=== PATIENT | female | born 1995 | race Caucasian/White ===

== ENCOUNTER 2017-03-15 09:11 | Observation (INO) | payer BC ==
[~2017-03-15] VITALS: Ht 167.6 cm; Wt 82.6 kg
[2017-03-15] VITALS (7 sets, daily range): BP systolic 100–120; BP diastolic 62–78; PULSE 80–103; TEMP 36.5–37; O2SAT 96–100; Ht 167.6 cm; Wt 82.6 kg
[2017-03-15] MEDS ORDERED: SODIUM CHLORIDE 0.9% 1000ML 1,000 ML IV STA (09:36)
--- NOTE | 2017-03-15 09:39 | EMERGENCY ROOM VISIT NOTE ---
History Report prepared by Lawandaibluisa: [place] Her Under the Supervision of: Luigi SalazarO. First contact with patient: 09:26 Chief Complaint: ABDOMINAL PAIN Stated Complaint: STOMACH PAINS, WEAKNESS, NAUSEA Nursing Triage Summary: low abd pain, started yesteday, along with nausea History of Present Illness The patient is a 21 year old female who presents to the Emergency Room with complaints of abdominal pain since yesterday. The pain was constant yesterday and located in the center of her abdomen. Today the pain has been intermittent and has localized more to the right lower abdomen. The pain is worse when she is walking and was also worse in the car ride en route to the ED. There is no pain radiating to her back. The patient is also feeling nauseous but has not vomited. She denies fevers, chills, cough or cold symptoms, diarrhea, or other changes in her bowel movements. She denies eating any unusual foods or having any sick contacts. She denies any history of endometriosis or ovarian cysts. She is on control but denies other daily medication use. She has not had any past surgeries. She denies alcohol or tobacco use. Source of History: patient Onset: yesterday Position: abdomen (RLQ) Timing: intermittent Modifying Factors (Worsening): movement Associated Symptoms: + nausea, No back pain, No chills, No cough, No diarrhea, No fevers, No urinary symptoms, No vomiting Review of Systems See HPI for pertinent positives & negatives. A total of 10 systems reviewed and were otherwise negative. Past Medical & Surgical Medical Problems: (1) No known health problems Social History Problems: (1) Uses control Family History No pertinent family history Social History Smoking Status: Never Smoker Alcohol Use: none Current/Historical Medications Scheduled Control Pills ( Control Pills), 1 TAB PO DAILY Allergies Coded Allergies: No Known Allergies (Unverified , 03/15/17) Physical Exam Vital Signs Date Time Temp Pulse Resp B/P Pulse Ox O2 Delivery O2 Flow Rate FiO2 03/15/17 12:22 103 16 122/77 99 Room Air 03/15/17 10:53 76 16 115/75 97 Room Air 03/15/17 09:22 37.1 97 16 117/76 99 Room Air Physical Exam GENERAL: alert, well appearing, well nourished, no distress, non-toxic EYE EXAM: normal conjunctiva, PERRL and EOM's grossly intact OROPHARYNX: no exudate, no erythema, lips, buccal mucosa, and tongue normal and mucous membranes are moist NECK: supple, no nuchal rigidity, no adenopathy, non-tender LUNGS: Clear to auscultation. Normal chest wall mechanics HEART: no murmurs, S1 normal and S2 normal ABDOMEN: Right lower quadrant tenderness to palpation, no rebound or guarding. BACK: Back is symmetrical on inspection and there is no deformity, no midline tenderness, no CVA tenderness. SKIN: no rashes and no bruising UPPER EXTREMITIES: upper extremities are grossly normal. LOWER EXTREMITIES: No pitting edema. NEURO EXAM: Normal sensorium, cranial nerves II-XII grossly intact, normal speech, no gross weakness of arms, no gross weakness of legs. Gross sensation intact. Medical Decision & Procedures ER Provider Diagnostic Interpretation: CT:Per my review, radiologist interpretation. CT SCAN OF THE ABDOMEN AND PELVIS WITH IV CONTRAST CLINICAL HISTORY: Right lower quadrant abdominal pain. Nausea and vomiting. COMPARISON STUDY: No priors. TECHNIQUE: Following the IV administration of 94 cc of Optiray 320, CT scan of the abdomen and pelvis is performed from the lung bases to the proximal femora. Images are reviewed in the axial, sagittal, and coronal planes. IV contrast was administered without complication. Automated dose control exposure was utilized. CT DOSE: 600.03 mGy.cm FINDINGS: Lung bases: The heart is normal in size and without pericardial effusion. The lung bases are clear. Liver: The contrast-enhanced liver is normal in size, contour, and attenuation. There is no intrahepatic biliary ductal dilatation. The hepatic veins and portal veins are patent. Gallbladder: Unremarkable. Spleen: Normal in size and attenuation. Pancreas: Unremarkable. Adrenal glands: Unremarkable. Kidneys: The contrast enhanced kidneys are normal in size and without hydronephrosis. The kidneys enhance symmetrically. Abdominal vasculature: The abdominal aorta is normal in course and caliber. Bowel: The small bowel and colon are normal in course and caliber. The appendix is distended and fluid-filled measuring up to 1.6 cm in diameter as seen on axial image #355. The appendiceal wall is markedly thickened and there is significant surrounding periappendiceal inflammation. The appearance is consistent with acute appendicitis. A calcified appendicolith is seen on image #356. There is trace surrounding fluid and phlegmonous change. No organized fluid collection is seen to indicate abscess. Cecal wall thickening is likely related to adjacent appendicitis. Peritoneum: There is no intraperitoneal free air or abdominal ascites. There is a fat-containing umbilical hernia. Lymphadenopathy: Mildly enlarged mesenteric lymph nodes in the right lower quadrant are likely on a reactive basis. Pelvic viscera: The bladder and uterus are normal as visualized. Ovoid cystic foci in the right peroneal region seen on image #427 and #446 measure up to 1.5 cm. These likely represent small Andrew's duct cysts. There are bilateral ovarian follicles. Trace free fluid is seen in the cul-de-sac. Skeletal structures: No lytic or blastic lesions are seen. IMPRESSION: 1. Findings are consistent with severe acute appendicitis. There is no definite evidence of abscess or intraperitoneal free air. Surgical consultation is advised. 2. Suspect right-sided Andrew's duct cysts. 3. There is trace nonspecific free fluid in cul-de-sac. 4. Additional findings as above. Electronically signed by: Apolinar Peña M.D. 03/15/2017 12:35 PM Dictated Date/Time: 03/15/2017 12:27 PM Laboratory Results 03/15/17 09:55 Red Blood Count 4.57, Mean Corpuscular Volume 82.9, Mean Corpuscular Hemoglobin 26.9, Mean Corpuscular Hemoglobin Concent 32.5, Mean Platelet Volume 11.0, Neutrophils (%) (Auto) 84.3, Lymphocytes (%) (Auto) 9.6, Monocytes (%) (Auto) 5.6, Eosinophils (%) (Auto) 0.1, Basophils (%) (Auto) 0.2, Neutrophils # (Auto) 13.65, Lymphocytes # (Auto) 1.55, Monocytes # (Auto) 0.91, Eosinophils # (Auto) 0.02, Basophils # (Auto) 0.03 03/15/17 09:55 Test 03/15/17 09:55 White Blood Count 16.19 K/uL (4.8-10.8) Red Blood Count 4.57 M/uL (4.2-5.4) Hemoglobin 12.3 g/dL (12.0-16.0) Hematocrit 37.9 % (37-47) Mean Corpuscular Volume 82.9 fL (80-100) Mean Corpuscular Hemoglobin 26.9 pg (25-34) Mean Corpuscular Hemoglobin Concent 32.5 g/dl (32-36) Platelet Count 301 K/uL (130-400) Mean Platelet Volume 11.0 fL (7.4-10.4) Neutrophils (%) (Auto) 84.3 % Lymphocytes (%) (Auto) 9.6 % Monocytes (%) (Auto) 5.6 % Eosinophils (%) (Auto) 0.1 % Basophils (%) (Auto) 0.2 % Neutrophils # (Auto) 13.65 K/uL (1.4-6.5) Lymphocytes # (Auto) 1.55 K/uL (1.2-3.4) Monocytes # (Auto) 0.91 K/uL (0.11-0.59) Eosinophils # (Auto) 0.02 K/uL (0-0.5) Basophils # (Auto) 0.03 K/uL (0-0.2) RDW Standard Deviation 38.7 fL (36.4-46.3) RDW Coefficient of Variation 12.8 % (11.5-14.5) Immature Granulocyte % (Auto) 0.2 % Immature Granulocyte # (Auto) 0.03 K/uL (0.00-0.02) Anion Gap 6.0 mmol/L (3-11) Est Creatinine Clear Calc Drug Dose 123.1 ml/min Estimated GFR () 126.1 Estimated GFR (Non- 108.8 BUN/Creatinine Ratio 14.2 (10-20) Calcium Level 8.8 mg/dl (8.5-10.1) Total Bilirubin 0.4 mg/dl (0.2-1) Aspartate Amino Transf (AST/SGOT) 12 U/L (15-37) Alanine Aminotransferase (ALT/SGPT) 18 U/L (12-78) Alkaline Phosphatase 71 U/L (45-117) Total Protein 7.9 gm/dl (6.4-8.2) Albumin 3.4 gm/dl (3.4-5.0) Globulin 4.5 gm/dl (2.5-4.0) Albumin/Globulin Ratio 0.8 (0.9-2) Laboratory results per my review. Urine dip and urine negative. Medications Administered Medications (Trade) Dose Ordered Sig/Bert Route Start Time Stop Time Status Last Admin Dose Admin Sodium Chloride (Nss 1000ml) 1,000 ml @ 125 mls/hr Q8H STAT IV 03/15/17 09:36 03/15/17 17:35 03/15/17 10:02 125 MLS/HR ED Course 0928: The patient was evaluated in room B12b. A complete history and physical exam was performed. 0936: NSS 1000 ml @ 125 mls/hr. 0938: Urine dip and urine negative. 1039: The patient's pain is a little worse than it was before. No other changes at this time. 1248: Updated the patient. 1307: Discussed the case with Dr. Hussein, General Surgeon. The patient will be evaluated. Medical Decision Differential diagnoses includes but is not limited to gastritis, peptic ulcer disease, GERD, gallbladder disease, pancreatitis, small bowel obstruction, acute coronary syndrome, pericarditis, ischemic bowel, irritable bowel disease, irritable bowel syndrome, appendicitis, diverticulitis, malignancy, hernia, urinary tract infection, torsion, [/ectopic (if female)], perforation, trauma, infectious. Consults Time Called: 1300 Consulting Physician: Dr. Hussein, General Surgeon Returned Call: 1307 The patient will be evaluated. Impression Primary Impression: Appendicitis Scribe Attestation The scribe's documentation has been prepared under my direction and personally reviewed by me in its entirety. I confirm that the note above accurately reflects all work, treatment, procedures, and medical decision making performed by me. Departure Information Dispostion Being Evaluated By Surgeon Referrals No Doctor, Assigned (PCP) Patient Instructions My [facility] Problem Qualifiers Primary Impression: Appendicitis Appendicitis type: acute appendicitis
[2017-03-15] MEDS ORDERED: OPTIRAY 320 IV PRN (10:00)
[2017-03-15] MEDS ORDERED: BCPILLS PO (10:07)
[2017-03-15 10:14] LABS: BASO % 0.2 %; BASO ABS # 0.03 K/uL (0-0.2); COMPLETE YES; EOS % 0.1 %; HEMATOCRIT 37.9 % (37-47); IG% 0.2 %; LYMPH % 9.6 %; LYMPH ABS # 1.55 K/uL (1.2-3.4); MEAN CELL VOLUME 82.9 fL (80-100); MEAN CORPUSCULAR HEMOGLOBIN 26.9 pg (25-34); MEAN CORPUSCULAR HGB CONC 32.5 g/dl (32-36); MONO % 5.6 %; NEUT % 84.3 %; PLATELET COUNT 301 K/uL (130-400); RED BLOOD COUNT 4.57 M/uL (4.2-5.4); WHITE BLOOD COUNT 16.19 K/uL (4.8-10.8)
[2017-03-15 10:34] LABS: BUN/CREATININE RATIO 14.2 (10-20); CALCIUM 8.8 mg/dl (8.5-10.1); CREATININE 0.77 mg/dl (0.60-1.20); POTASSIUM 3.7 mmol/L (3.5-5.1)
[2017-03-15 10:37] LABS: ALB/GLOB RATIO 0.8 (0.9-2)
--- NOTE | 2017-03-15 12:37 | DIAGNOSTIC IMAGING REPORT ---
CT SCAN OF THE ABDOMEN AND PELVIS WITH IV CONTRAST CLINICAL HISTORY: Right lower quadrant abdominal pain. Nausea and vomiting. COMPARISON STUDY: No priors. TECHNIQUE: Following the IV administration of 94 cc of Optiray 320, CT scan of the abdomen and pelvis is performed from the lung bases to the proximal femora. Images are reviewed in the axial, sagittal, and coronal planes. IV contrast was administered without complication. Automated dose control exposure was utilized. CT DOSE: 600.03 mGy.cm FINDINGS: Lung bases: The heart is normal in size and without pericardial effusion. The lung bases are clear. Liver: The contrast-enhanced liver is normal in size, contour, and attenuation. There is no intrahepatic biliary ductal dilatation. The hepatic veins and portal veins are patent. Gallbladder: Unremarkable. Spleen: Normal in size and attenuation. Pancreas: Unremarkable. Adrenal glands: Unremarkable. Kidneys: The contrast enhanced kidneys are normal in size and without hydronephrosis. The kidneys enhance symmetrically. Abdominal vasculature: The abdominal aorta is normal in course and caliber. Bowel: The small bowel and colon are normal in course and caliber. The appendix is distended and fluid-filled measuring up to 1.6 cm in diameter as seen on axial image #355. The appendiceal wall is markedly thickened and there is significant surrounding periappendiceal inflammation. The appearance is consistent with acute appendicitis. A calcified appendicolith is seen on image #356. There is trace surrounding fluid and phlegmonous change. No organized fluid collection is seen to indicate abscess. Cecal wall thickening is likely related to adjacent appendicitis. Peritoneum: There is no intraperitoneal free air or abdominal ascites. There is a fat-containing umbilical hernia. Lymphadenopathy: Mildly enlarged mesenteric lymph nodes in the right lower quadrant are likely on a reactive basis. Pelvic viscera: The bladder and uterus are normal as visualized. Ovoid cystic foci in the right peroneal region seen on image #427 and #446 measure up to 1.5 cm. These likely represent small Andrew's duct cysts. There are bilateral ovarian follicles. Trace free fluid is seen in the cul-de-sac. Skeletal structures: No lytic or blastic lesions are seen. IMPRESSION: 1. Findings are consistent with severe acute appendicitis. There is no definite evidence of abscess or intraperitoneal free air. Surgical consultation is advised. 2. Suspect right-sided Andrew's duct cysts. 3. There is trace nonspecific free fluid in cul-de-sac. 4. Additional findings as above. Electronically signed by: Apolinar Peña M.D. 03/15/2017 12:35 PM Dictated Date/Time: 03/15/2017 12:27 PM
[2017-03-15] MEDS ORDERED: CEFAZOLIN SOD 1 GM VIAL ONE (13:55)
[2017-03-15] MEDS ORDERED: HEPARIN SOD (PORCINE) 1000 UNIT/ML 10 ML VIAL ONE (13:55)
[2017-03-15] MEDS ORDERED: BUPIVACAINE 0.5 % 5 MG/1 ML MPF 30ML VIAL ONE (13:55)
[2017-03-15] MEDS ORDERED: CEFOXITIN SOD 2 GM VIAL IV STA (14:06)
--- NOTE | 2017-03-15 14:06 | History and Physical: Surg Cnt ---
History & Physical Date March 15, 2017. (Citlali Collins, CAMPOS) Chief Complaint abdominal pain, acute appendicitis (Citlali Collins PA-C) History of Present Illness Isabella is a pleasant 21 year-old female who presented to emergency department from urgent care clinic with complaint of abdominal pain since yesterday at 1 pm. Isabella states the pain started at the belly button and is now in the right lower quadrant. States she has never had this pain before. Had associated nausea but no vomiting. Was in her normal state of health yesterday prior to 1 pm. Denies of any chills, sweats, chest pain, shortness of breath, changes in bowel habits, diarrhea, constipation, or blood in stools. She had a CT can of the abdomen and pelvis which showed a dilated appendix measuring 1.6 cm , consistent with severe acute appendicitis, no evidence of abscess or perforation. And a fecolith present. She has a white count of 16 and had a fever of 99.8 at the urgent care center. No fevers at home prior. (Citlali Collins PA-C) Past Medical/Surgical History Medical Problems: (1) No known health problems Social History Problems: (1) Uses control (Citlali Collins PA-C) Additional History Hepatic Disease: No Endocrine Disorder: No Kidney Disease: No Hypertension: No Heart Disease: No Bleeding Tendencies: No Infectious Diseases: No (Citlali Collins PA-C) Allergies Coded Allergies: No Known Allergies (Unverified , 03/15/17) Home Medications Scheduled Control Pills ( Control Pills), 1 TAB PO DAILY Physical Examination Skin: warm/dry, no rash Eyes: sclerae normal ENT: normal ENT inspection Head: normocephalic Neck: supple, trachea midline Respiratory/Chest: lungs clear, normal breath sounds, no respiratory distress Cardiovascular: regular rate, rhythm, no murmur Abdomen / GI: normal bowel sounds, + pertinent finding (RLQ tenderness on examination, negative McBurney's and no guarding or rigidity or peritonitis) Back: normal inspection Extremities: normal inspection Neurologic/Psych: alert, oriented x 3 (Citlali Collins PA-C) Diagnosis Acute Appendicitis - dilated appendix measuring 1.6 cm, no abscess or perforation - leukocytosis of 16 - febrile early today with temp of 99.8 - Periumbilical pain that radiated to RLQ (Citlali Collins ., PA-C) Plan of Treatment Plan to take patient back to operating room for laparoscopic appendectomy possible open Patient was informed of procedure and risks including but not limited to bleeding, infection, injury to surrounding organs /tissues, cardiopulmonary complications, blood clots, and staple leak Patient understood and informed consent obtained She will get 2 gms Cefoxitin IV pre-op She will be transferred to [facility] post operatively Dr. Hussein has seen and examined patient and agrees with above findings. (Citlali Collins ., PA-C) I interviewed and examined this patient and reviewed the labs and radiology images and reports and I agree with the above report. Her history, physical, labs and radiology findings are all consistent with appendicitis. I have recommended a laparoscopic appendectomy and explained the possible need to convert to an open procedure and explained some of the possible complications. She has signed a consent form. (Gurdeep Hussein M.D.)
[2017-03-15] MEDS ORDERED: CEFOXITIN IV 2,000 MG in DEXTROSE 5% 50ML 50 ML IV SCH (14:08)
[2017-03-15] MEDS ORDERED: FENTANYL CITRATE INJ 50 MCG/1 ML 2 ML VIAL IV PRN (14:15)
[2017-03-15] MEDS ORDERED: ONDANSETRON INJ 2 MG/ML 2 ML VIAL IV PRN ×2 (14:15→16:45)
[2017-03-15] MEDS ORDERED: EpHEDrine SULFATE INJ 50 MG/ML AMP IV PRN (14:15)
[2017-03-15] MEDS ORDERED: ATROPINE SULFATE 0.1 MG/ML 5ML SYR IV PRN (14:15)
[2017-03-15] MEDS ORDERED: HEPARIN 1000 UNIT/ML FLUSH ONE (15:50)
--- NOTE | 2017-03-15 16:31 | [facility] Post Operative Brief Note ---
Immediate Operative Summary Operative Date March 15, 2017. Pre-Operative Diagnosis Acute appendicitis Post-Operative Diagnosis Same as preoperative diagnosis Procedure(s) Performed Laparoscopic Appendectomy with conversion to open appendectomy Surgeon Dr. Gurdeep Hussein Mandrel Puller Surgeon(s) Citlali Collins PA-C Estimated Blood Loss 15 mL Findings See dictation Specimens Permanent specimens A: Appendix Drains None Anesthesia General Complication(s) None Disposition Recovery Room / PACU
[2017-03-15] MEDS ORDERED: MoRPHine SULFATE 4 MG/ML 1 ML CARP\\VIAL IV PRN (16:45)
[2017-03-15] MEDS ORDERED: IV FLUIDS COMPLETED PRN (17:00)
--- NOTE | 2017-03-15 17:29 | Anesthesiology Progress Note ---
Anesthesia Post Op Note Date & Time March 15, 2017 at 17:29 Vital Signs Pain Intensity: 0 Vital Signs Past 12 Hours Date Time Temp Pulse Resp B/P Pulse Ox O2 Delivery O2 Flow Rate FiO2 03/15/17 17:15 77 14 115/67 99 Nasal Cannula 3 03/15/17 17:05 36.6 83 14 111/66 99 Nasal Cannula 3 03/15/17 16:55 76 12 112/66 99 Nasal Cannula 3 03/15/17 16:45 76 12 112/63 99 Mask 5 03/15/17 16:37 36.7 78 12 103/61 100 Mask 10 03/15/17 13:56 103 16 122/77 99 03/15/17 12:22 103 16 122/77 99 Room Air 03/15/17 10:53 76 16 115/75 97 Room Air 03/15/17 09:22 37.1 97 16 117/76 99 Room Air Notes Mental Status: alert / awake / arousable, participated in evaluation Pt Amnestic to Procedure: Yes Nausea / Vomiting: adequately controlled Pain: adequately controlled Airway Patency, RR, SpO2: stable & adequate BP & HR: stable & adequate Hydration State: stable & adequate Anesthetic Complications: no major complications apparent Pt doing well.
[2017-03-15] MEDS: D5W AND 1/2NSS + 20MEQ KCL 1,000 ML IV SCH (18:47)
[2017-03-15] MEDS: CEFOXITIN IV 2,000 MG in DEXTROSE 5% 50ML 50 ML IV SCH (20:43)
[2017-03-15] MEDS: OXYCODONE/ACETAMINOPHEN 5-325 TAB PO PRN (22:14)
--- NOTE | 2017-03-16 00:42 | OPERATIVE REPORT ---
DATE OF OPERATION: 03/15/2017 PREOPERATIVE DIAGNOSIS: Appendicitis. POSTOPERATIVE DIAGNOSIS: Same. PROCEDURE: Laparoscopic appendectomy converted to open procedure. SURGEON: Dr. Hussein. WINCH TRUCK OPERATOR: Citlali Collins PA-C. FINDINGS: The appendix was dilated to approximately 1.6 cm. The entire appendix from its junction with the cecum to the tip was dilated. There was hyperemia and it was firm. There was no evidence of perforation or abscess. Identifying the anatomy made it difficult requiring the open procedure. TECHNIQUE: The patient was given a general anesthetic and the area was prepped and draped in the usual sterile fashion. Transverse incision was made below the umbilicus, carried down through the subcutaneous tissue to the fascia which was grasped with 2 Abelardo clamps and incised between. The peritoneum was identified, incised, and the introducer was placed bluntly. The abdomen was then insufflated to a pressure of 15 mmHg with carbon dioxide. A lower midline introducer was placed under direct vision through small skin incisions. The cecum was identified, was rotated medially, and the appendix was easily identified. The left lower quadrant introducer was then placed under direct vision. There was adhesion of the mesentery of the appendix and the appendix itself to the lateral and posterior abdominal mariscal. Those adhesions were taken down using blunt and sharp dissection. That allowed me to work superiorly, mobilizing the cecum medially off the wall by dividing the line of Toldt, this allowed better visualization. There was significant thickening of the mesentery of the appendix. Some of it could be peeled away using cautery. I was able to establish a plane in the mid portion of the mesentery and I was able to divide that using the Endo-SOILA. That allowed me further elevation of the appendix. Additional portion was then able to be freed with what proved to be the wall of the significantly dilated appendix at the base. I was able to divide the mesoappendix using the Endo-SOILA there. It was difficult to tell that the appendix was in fact dilated all the way to the base, at one point there appeared to be a more thin structure medially that appeared to possibly be the very base of the appendix which was normal. In trying to dissect that, I could not establish a very good plane, and in not being able to identify the anatomy, I decided to open. The gas was allowed to escape. A Wil-Paulo incision was performed and carried down through the subcutaneous tissue to the fascia which was opened transversely. The internal oblique fascia was opened. The muscle was split. The peritoneum was identified, incised, and the abdomen was entered. I was then able to eviscerate the appendix and the cecum which had been mobilized. It was then clear that the entire base of the appendix was dilated as well. It appeared as though I had denuded some of the serosa off the cecum. At no time, however, was the lumen of the bowel entered. At that point, I then amputated the appendix using the Endo-SOILA stapler. It required 2 firings. I then reapproximated the serosa along the entire area that I had opened it, imbricating the submucosa and mucosa until it was completely covered. It was inspected for bleeding, none was seen. The ileocecal valve was patent. I then was able to place the cecum back into its anatomic position. The right lower quadrant was irrigated and the irrigation was removed from the right lower quadrant and the pelvis. The peritoneum was closed using a running 2-0 Vicryl. The internal oblique fascia was closed with a running 0 Vicryl and the external oblique fascia was closed with a running #1 PDS. The subcutaneous tissue was closed with running 3-0 Vicryl, the superficial subcutaneous tissue was closed with running 3-0 Vicryl, and the skin was closed with 4-0 Monocryl in a running subcuticular fashion. The fascia of the umbilical introducer site was closed with interrupted 0 Vicryl. The skin of rest of the incisions was closed with 4-0 Monocryl in either an interrupted or running subcuticular fashion. The skin of all the incisions was anesthetized with 0.5% Marcaine without epinephrine. The skin was cleansed, dried, benzoin placed, Steri-Strips applied. Estimated blood loss was 15 mL. Sponge, needle and instrument counts were correct prior to closure. The patient tolerated surgical procedure without complication and was transferred to recovery. I attest to the content of the Intraoperative Record and any orders documented therein. Any exceptio ns are noted below.
[2017-03-16 03:50] VITALS: BP 116/66; PULSE 81; TEMP 36.8; O2SAT 98
[2017-03-16] MEDS: D5W AND 1/2NSS + 20MEQ KCL 1,000 ML IV SCH ×3 (04:24→23:56)
[2017-03-16] MEDS: CEFOXITIN IV 2,000 MG in DEXTROSE 5% 50ML 50 ML IV SCH ×2 (05:33→13:41)
[2017-03-16 06:09] LABS: BASO % 0.1 %; BASO ABS # 0.01 K/uL (0-0.2); COMPLETE YES; IG% 0.3 %; LYMPH % 12.6 %; LYMPH ABS # 1.54 K/uL (1.2-3.4); MEAN CELL VOLUME 82.9 fL (80-100); MEAN CORPUSCULAR HEMOGLOBIN 26.1 pg (25-34); MEAN CORPUSCULAR HGB CONC 31.4 g/dl (32-36); MEAN PLATELET VOLUME 11.1 fL (7.4-10.4); MONO % 9.9 %; NEUT % 77.1 %; PLATELET COUNT 273 K/uL (130-400); RED BLOOD COUNT 4.22 M/uL (4.2-5.4); WHITE BLOOD COUNT 12.21 K/uL (4.8-10.8)
[2017-03-16 07:11] VITALS: BP 121/74; PULSE 81; TEMP 36.5; O2SAT 98
[2017-03-16] MEDS: OXYCODONE/ACETAMINOPHEN 5-325 TAB PO PRN ×3 (08:33→18:38)
--- NOTE | 2017-03-16 11:57 | Surgery Progress Note ---
Surgery Progress Note Date of Service March 16, 2017. Subjective Post OP Day: 1 + diet (tolerate dclear liquids but appetite is decreased), + pain controlled, No nausea, No vomiting Objective Vital Signs: Date Time Temp Pulse Resp B/P Pulse Ox O2 Delivery O2 Flow Rate FiO2 03/16/17 08:33 Room Air 03/16/17 07:11 36.5 81 17 121/74 98 Room Air 03/16/17 03:50 36.8 81 16 116/66 98 Room Air 03/15/17 23:37 36.7 81 17 100/62 97 Room Air 03/15/17 23:30 Room Air 03/15/17 20:50 36.7 86 16 115/74 96 Room Air 03/15/17 19:38 36.6 93 18 120/78 100 Room Air 03/15/17 19:30 97 Room Air 0.0 03/15/17 18:41 37.0 103 18 114/78 97 Room Air 03/15/17 18:19 37.0 89 14 108/70 100 Room Air 0.0 03/15/17 18:13 Nasal Cannula 2.0 03/15/17 17:56 36.5 80 18 110/76 Room Air 03/15/17 17:25 83 18 114/67 99 Nasal Cannula 3 03/15/17 17:15 77 14 115/67 99 Nasal Cannula 3 03/15/17 17:05 36.6 83 14 111/66 99 Nasal Cannula 3 03/15/17 16:55 76 12 112/66 99 Nasal Cannula 3 03/15/17 16:45 76 12 112/63 99 Mask 5 03/15/17 16:37 36.7 78 12 103/61 100 Mask 10 03/15/17 13:56 103 16 122/77 99 03/15/17 12:22 103 16 122/77 99 Room Air Abdomen: non distended, soft, + abnormal bowel sounds (decreased bowel sounds) , + tenderness (Incisional only) Laboratory Results: Results Past 24 Hours Test 03/16/17 05:32 Range/Units White Blood Count 12.21 4.8-10.8 K/uL Red Blood Count 4.22 4.2-5.4 M/uL Hemoglobin 11.0 12.0-16.0 g/dL Hematocrit 35.0 37-47 % Mean Corpuscular Volume 82.9 80-100 fL Mean Corpuscular Hemoglobin 26.1 25-34 pg Mean Corpuscular Hemoglobin Concent 31.4 32-36 g/dl Platelet Count 273 130-400 K/uL Mean Platelet Volume 11.1 7.4-10.4 fL Neutrophils (%) (Auto) 77.1 % Lymphocytes (%) (Auto) 12.6 % Monocytes (%) (Auto) 9.9 % Eosinophils (%) (Auto) 0.0 % Basophils (%) (Auto) 0.1 % Neutrophils # (Auto) 9.41 1.4-6.5 K/uL Lymphocytes # (Auto) 1.54 1.2-3.4 K/uL Monocytes # (Auto) 1.21 0.11-0.59 K/uL Eosinophils # (Auto) 0.00 0-0.5 K/uL Basophils # (Auto) 0.01 0-0.2 K/uL RDW Standard Deviation 39.7 36.4-46.3 fL RDW Coefficient of Variation 13.1 11.5-14.5 % Immature Granulocyte % (Auto) 0.3 % Immature Granulocyte # (Auto) 0.04 0.00-0.02 K/uL Assessment & Plan S/P open appendectomy May have ileus Continue clear liquid diet Encouraged ambulation
[2017-03-16 15:11] VITALS: BP 126/75; PULSE 71; TEMP 37; O2SAT 98
[2017-03-16 23:07] VITALS: BP 117/72; PULSE 89; TEMP 36.7; O2SAT 95
[2017-03-17] MEDS: OXYCODONE/ACETAMINOPHEN 5-325 TAB PO PRN ×3 (00:01→20:13)
[2017-03-17 05:56] LABS: BASO % 0.3 %; BASO ABS # 0.03 K/uL (0-0.2); COMPLETE YES; EOS % 1.5 %; HEMATOCRIT 34.3 % (37-47); IG% 0.1 %; LYMPH % 38.4 %; LYMPH ABS # 3.35 K/uL (1.2-3.4); MEAN CELL VOLUME 84.9 fL (80-100); MEAN CORPUSCULAR HEMOGLOBIN 27.5 pg (25-34); MEAN CORPUSCULAR HGB CONC 32.4 g/dl (32-36); MEAN PLATELET VOLUME 11.1 fL (7.4-10.4); MONO % 9.7 %; PLATELET COUNT 257 K/uL (130-400); RED BLOOD COUNT 4.04 M/uL (4.2-5.4); WHITE BLOOD COUNT 8.72 K/uL (4.8-10.8)
[2017-03-17 07:04] VITALS: BP 128/82; PULSE 85; TEMP 36.8; O2SAT 97
[2017-03-17] MEDS: D5W AND 1/2NSS + 20MEQ KCL 1,000 ML IV SCH (10:05)
[2017-03-17 15:09] VITALS: BP 111/71; PULSE 87; TEMP 36.7; O2SAT 98
--- NOTE | 2017-03-17 16:09 | Surgery Progress Note ---
Surgery Progress Note Date of Service March 17, 2017. Subjective Post OP Day: 2 + diet (Tolerated liquids), + flatus, + pain controlled (Having less), No bowel movement, No nausea, No vomiting Feels much better today Objective Vital Signs: Date Time Temp Pulse Resp B/P Pulse Ox O2 Delivery O2 Flow Rate FiO2 03/17/17 15:09 36.7 87 16 111/71 98 Room Air 03/17/17 07:30 Room Air 03/17/17 07:04 36.8 85 19 128/82 97 Room Air 03/16/17 23:59 Room Air 03/16/17 23:07 36.7 89 16 117/72 95 Room Air Abdomen: normal bowel sounds, non distended, soft Incision(s): clean, dry, intact, no erythema Laboratory Results: Results Past 24 Hours Test 03/17/17 05:32 Range/Units White Blood Count 8.72 4.8-10.8 K/uL Red Blood Count 4.04 4.2-5.4 M/uL Hemoglobin 11.1 12.0-16.0 g/dL Hematocrit 34.3 37-47 % Mean Corpuscular Volume 84.9 80-100 fL Mean Corpuscular Hemoglobin 27.5 25-34 pg Mean Corpuscular Hemoglobin Concent 32.4 32-36 g/dl Platelet Count 257 130-400 K/uL Mean Platelet Volume 11.1 7.4-10.4 fL Neutrophils (%) (Auto) 50.0 % Lymphocytes (%) (Auto) 38.4 % Monocytes (%) (Auto) 9.7 % Eosinophils (%) (Auto) 1.5 % Basophils (%) (Auto) 0.3 % Neutrophils # (Auto) 4.35 1.4-6.5 K/uL Lymphocytes # (Auto) 3.35 1.2-3.4 K/uL Monocytes # (Auto) 0.85 0.11-0.59 K/uL Eosinophils # (Auto) 0.13 0-0.5 K/uL Basophils # (Auto) 0.03 0-0.2 K/uL RDW Standard Deviation 42.3 36.4-46.3 fL RDW Coefficient of Variation 13.5 11.5-14.5 % Immature Granulocyte % (Auto) 0.1 % Immature Granulocyte # (Auto) 0.01 0.00-0.02 K/uL Assessment & Plan S/P open appendectomy Ileus resolved Regular diet Encouraged ambulation
[2017-03-17] MEDS ORDERED: NURSING VERBAL MED ORDER ONE (19:00)
[2017-03-17 22:54] VITALS: BP 107/67; PULSE 70; TEMP 36.5; O2SAT 96
[2017-03-18] MEDS: OXYCODONE/ACETAMINOPHEN 5-325 TAB PO PRN ×2 (00:52→09:11)
[2017-03-18 06:56] VITALS: BP 128/72; PULSE 73; TEMP 37; O2SAT 96
--- NOTE | 2017-03-18 07:24 | Anesthesiology Progress Note ---
Anesthesia Post Op Note Date & Time March 18, 2017 at 07:24 Vital Signs Pain Intensity: 6.0 Vital Signs Past 12 Hours Date Time Temp Pulse Resp B/P Pulse Ox O2 Delivery O2 Flow Rate FiO2 03/18/17 06:56 37.0 73 19 128/72 96 Room Air 03/18/17 00:45 Room Air 0.0 03/17/17 22:54 36.5 70 14 107/67 96 Room Air Notes Mental Status: alert / awake / arousable, participated in evaluation Pt Amnestic to Procedure: Yes Nausea / Vomiting: adequately controlled Pain: adequately controlled Airway Patency, RR, SpO2: stable & adequate BP & HR: stable & adequate Hydration State: stable & adequate Anesthetic Complications: no major complications apparent
[2017-03-18] MEDS ORDERED: OXYC-57 PO (10:41)
--- NOTE | 2017-03-18 10:45 | Discharge Instructions ---
Discharge Instructions Date of Service March 18, 2017. Admission Reason for Admission: Appendicitis Discharge Discharge Diagnosis / Problem: s/p laparoscopic converted to open appendectomy Discharge Goals Goal(s): Decrease discomfort Activity Recommendations Activity Limitations: as noted below No heavy lifting over 10 pounds for 6 weeks No strenuous activity until cleared by surgeon Walking is encouraged No driving while taking narcotic pain medication or until you are pain free . Instructions / Follow-Up Instructions / Follow-Up You may shower, no submerging incisions underwater (bath, hot tubs, pool) for 2 weeks You may take Ibuprofen and Tylenol if you do not take the Percocet. Do NOT take Tylenol with the Percocet as it has Tylenol in it. You may take steri strips off in 7 days, if they fall off before that is fine Follow-up with Dr. Hussein in 2 weeks Please call office at [phone] to make an appointment Current Hospital Diet Patient's current hospital diet: Regular Diet Discharge Diet Recommended Diet: Regular Diet Procedures Procedures Performed: Laparoscopic Appendectomy with conversion to open appendectomy Pending Studies Studies pending at discharge: no Medical Emergencies . Who to Call and When: Medical Emergencies: If at any time you feel your situation is an emergency, please call 911 immediately. . Non-Emergent Contact Non-Emergency issues call your: Primary Care Provider, Surgeon Call Non-Emergent contact if: you have a fever, temperature is above 101.5, your pain is not controlled, your pain is worsening, wound has increased drainage, wound has increased redness, wound has increased pain . "Provider Documentation" section prepared by Citlali Collins. . VTE Core Measure Inpt VTE Proph given/why not?: SCD's [place] Drug Monitoring Program Search Results: patient reviewed within database, no issues identified
--- NOTE | 2017-03-18 10:50 | Surgery Progress Note ---
Surgery Progress Note Date of Service March 18, 2017. Subjective Post OP Day: 3 + ambulating, + diet (regular diet), + feeling well, + pain controlled, No SOB, No chest pain, No complaints, No nausea, No vomiting Objective Vital Signs: Date Time Temp Pulse Resp B/P Pulse Ox O2 Delivery O2 Flow Rate FiO2 03/18/17 07:15 Room Air 03/18/17 06:56 37.0 73 19 128/72 96 Room Air 03/18/17 00:45 Room Air 0.0 03/17/17 22:54 36.5 70 14 107/67 96 Room Air 03/17/17 17:00 Room Air 03/17/17 15:09 36.7 87 16 111/71 98 Room Air General Appearance: WD/WN, no apparent distress Head: normocephalic, atraumatic Neck: trachea midline Respiratory/Chest: no respiratory distress, no accessory muscle use Abdomen: non distended, soft, + tenderness (appropriate post op) Incision(s): clean, dry, intact, no erythema, no drainage Assessment & Plan POD # 3 s/p laparoscopic converted open appendectomy - vitals stable - ambulating and urinating without difficulty - pain controlled - tolerated regular diet Plan: Discharge today Discharge instructions given Follow-up in 2 weeks Rx for Percocet work note given Dr. Hussein has seen and examined patient and agrees with above findings and plan.
[2017-03-18 11:05] VITALS: BP 128/72; PULSE 73; TEMP 37; O2SAT 96
--- NOTE | 2017-03-20 12:00 | Discharge Summary ---
Discharge Summary Dates Admission Date / Time: March 15, 2017 at 16:34 Discharge Date: March 18, 2017 Dispostion / Condition Discharge Disposition: Home Condition at Discharge: Good Principal Diagnosis (1) Acute appendicitis Consultations / Procedures Consultations: None Procedures: Laparoscopic converted to open appendectomy Pending Studies / Follow-Up None Medication Reconciliation New Medications: Oxycodone/Acetaminophen 5MG/325MG (Percocet 5MG/325MG) Tab 1 TABLET PO Q4H PRN for Pain, #18 TAB Continued Medications: Control Pills ( Control Pills) Tab 1 TAB PO DAILY, TAB Admission HPI Per the Admitting provider: Isabella is a pleasant 21 year-old female who presented to emergency department from urgent care clinic on 03/15/2017 with complaint of abdominal pain since 1 pm the day prior. Isabella stated the pain started at the belly button and was now in the right lower quadrant. Stated she never had that type of pain before. Had associated nausea but no vomiting. Was in her normal state of prior to 1 pm the day before ER admission. Denied of any chills, sweats, chest pain, shortness of breath, changes in bowel habits, diarrhea, constipation, or blood in stools. She had a CT can of the abdomen and pelvis which showed a dilated appendix measuring 1.6 cm , consistent with severe acute appendicitis, no evidence of abscess or perforation. And a fecolith present. She had a white count of 16 and had a fever of 99.8 at the urgent care center. No fevers at home prior. Hospital Course (1) Acute appendicitis Patient was taken to operating room for laparoscopic appendectomy by Dr. Hussein. Given the amount of inflammation of the mesentery the procedure was converted to open. Patient tolerated procedure well without any complications and was transferred to PACU and then Med/surg floor in stable condition. She was started on clear liquids, IV and PO pain medication as needed, IV antibiotics (1 gm Cefoxitin q 8 hours), and IV fluids. POD # 1 she was having moderate abdominal pain and tolerated clears but appetite was low. She did not have any flatus. Diet was not advanced to possible Ileus. POD # 2 she tolerated liquids and passed some flatus. Pain was controlled. Diet was advanced to regular diet. POD # 3 she was feeling much better. Tolerated regular diet. Passed flatus and pain controlled. Adequate urine output and ambulation. She was discharged on POD # 3 in stable condition. Overall hospital course was uneventful. Discharge Instructions as given to patient Copies To Primary Care Provider: No Doctor, Assigned.
== END 2017-03-18 11:23 | disposition home or self-care (01) ==
LOC: ENRESERVDT → ENRESERVTM → C.EDB 09:13 → C.MSW 16:34
PROVIDERS: ADMIT Surgery; ATTEND Surgery
DX: K35.80 Unspecified acute appendicitis (principal); Z53.31 Laparoscopic surgical procedure converted to open procedure; Z79.3 Long term (current) use of hormonal contraceptives